=== PATIENT | male | born 1970 | race Caucasian/White ===

== ENCOUNTER 2018-12-20 18:11 | Emergency (ER) | payer MEDICAID, OTHER ==
[~2018-12-20] VITALS: Ht 177.8 cm; Wt 81.6 kg
[2018-12-20 18:24] VITALS: BP 124/63
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
[2018-12-20] MEDS ORDERED: NACL 0.9% 1,000 ML IV ONE (19:55)
--- NOTE | 2018-12-20 22:00 | NUR ---
Patient discharged with v/s stable. Written and verbal after care instructions given and explained. Patient alert, oriented and verbalized understanding of instructions. Ambulatory with steady gait. All questions addressed prior to discharge. ID band removed. Patient advised to follow up with PMD. Rx of TYLENOL 325 MG given. Patient educated on indication of medication including possible reaction and side effects. Opportunity to ask questions provided and answered.
[2018-12-20 22:17] VITALS: BP 136/72
== END 2018-12-20 22:00 | disposition home or self-care (01) ==
LOC: MED 18:11
DX: M25.532 Pain in left wrist (principal); F10.129 Alcohol abuse with intoxication, unspecified
CPT/HCPCS: 29125; 73110; 99283; J7030

== ENCOUNTER 2018-12-23 03:30 | Emergency (ER) | payer MEDICAID ==
[~2018-12-23] VITALS: Ht 177.8 cm; Wt 88.5 kg
--- NOTE | 2018-12-23 03:30 | NUR ---
PT BIBA BLS, TAKEN TO BED 10
[2018-12-23 03:39] VITALS: BP 130/83
--- NOTE | 2018-12-23 03:41 | NUR ---
48 Y/O M BIBA WITH C/O ABDOMINAL PAIN. AAOX4. VSS. TENDERNESS TO RLQ. 7/10 PAIN, ACHING SENSATION. PER PT SYMPTOMS STARTED X2 DAYS AGO. GENERALIZED BODY JERKING MOTIONS. DENIES ALCOHOL AND DRUG USAGE. BEDRAILS X2 UP. NOTIFIED. WILL CONINTUE TO MONITOR. PMH: HEP C
[2018-12-23] MEDS ORDERED: LORazepam 2 MG/ML VIAL IVP ONE (03:50)
[2018-12-23] MEDS ORDERED: NACL 0.9% 1,000 ML IV ONE ×2 (03:50→04:50)
[2018-12-23 04:11] LABS: BASOPHILS % (AUTO) 0.6 % (0.0-2.0); EOSINOPHILS # (AUTO) 0.1 K/uL (0-0.4); EOSINOPHILS % (AUTO) 2.4 % (0.0-4.0); HEMATOCRIT 37.5 % (36-52); HEMOGLOBIN 12.7 g/dL (12.0-18.0); LYMPHOCYTES # (AUTO) 0.9 K/uL (2.0-11.5); MEAN CORPUSCULAR HEMOGLOBIN 30 pg (27-31); MEAN CORPUSCULAR HGB CONC 34 g/dL (33-37); MEAN CORPUSCULAR VOLUME 88.4 fL (80-94); MONOCYTES % (AUTO) 15.8 % (1.7-9.3); NEUTROPHILS # (AUTO) 4.1 K/uL (1.8-7.7); NEUTROPHILS % (AUTO) 66.2 % (42.2-75.2); PLATELET COUNT (AUTO) 148 K/uL (140-450); RED BLOOD CELL COUNT(AUTO) 4.23 MIL/uL (4.20-6.10); RED CELL DISTRIBUTION WIDTH 15.7 % (11.6-13.7); WHITE BLOOD COUNT (AUTO) 6.2 K/uL (4.8-10.8)
[2018-12-23 04:22] LABS: ANION GAP 17.6 (8-16); CARBON DIOXIDE 21.8 mmol/L (21-32); CHLORIDE 104 mmol/L (98-107); CREATININE 1.1 mg/dL (0.7-1.3); GFR ARICAN-AMERICAN 91 mL/min (>90); GLUCOSE 91 mg/dL (74-106); POTASSIUM 3.4 mmol/L (3.5-5.1); SODIUM SERUM 140 mmol/L (136-145); UREA NITROGEN, BLOOD 24 mg/dL (7-18)
[2018-12-23 04:25] LABS: BARBITURATE, URINE NEG. ng/ml (NEG <=200); BENZODIAZEPINE, URINE NEG. ng/mL (NEG <=200); CANNABINOID, URINE NEG. ng/mL (NEG <=50); COCAINE, URINE NEG. ng/mL (NEG <=300); OPIATE, URINE POS. ng/mL (NEG <=2000); PHENCYCLIDINE SCREEN,URINE NEG. ng/mL (NEG <=25)
[2018-12-23 04:29] LABS: ASPARTATE AMINOTRANSFERASE 288 U/L (15-37)
[2018-12-23 04:30] LABS: ACETAMINOPHEN < 0.5 ug/ml (10-30); ALBUMIN 3.5 g/dL (3.4-5.0); SALICYLATE < 2.8 mg/dL (2.8-20.0)
--- NOTE | 2018-12-23 04:35 | NUR ---
PT ASLEEP. AROUSABLE TO NAME AND PAIN STIMULUS. VSS.
--- NOTE | 2018-12-23 05:30 | NUR ---
ATTEMPTED TO AMBULATE PT. UNABLE TO STAND WITH STEADY GAIT. VSS. REPOSITIONED IN BED. BEDRAILS X2 UP. WILL CONTINUE TO MONITOR.
--- NOTE | 2018-12-23 06:35 | NUR ---
PT ASLEEP, BUT AROUSABLE TO NAME. CHEST RISE AND FALL NOTED.
--- NOTE | 2018-12-23 07:06 | NUR ---
BEDSIDE REPORT GIVEN TO JEANNINE CAM. TRANSFER OF CARE AT THIS TIME.
--- NOTE | 2018-12-23 07:27 | NUR ---
PT ASLEEP, EVEN AND UNLABORED BREATHING. AROUSAL TO NAME. ON LOW BED POSITION. WILL CONTINUE TO MONITOR.
--- NOTE | 2018-12-23 08:06 | NUR ---
Patient appears to be resting in bed. Vital Signs within normal limits. Respirations even and unlabored.
[2018-12-23 10:28] VITALS: BP 119/76
== END 2018-12-23 10:29 | disposition home or self-care (01) ==
LOC: MED 03:30
DX: F15.10 Other stimulant abuse, uncomplicated (principal); E86.0 Dehydration; M62.838 Other muscle spasm; F17.210 Nicotine dependence, cigarettes, uncomplicated; Z98.890 Other specified postprocedural states
CPT/HCPCS: 36415; 80053; 80305; 85025; 96374; 99283; G0480; G0482; J2060; J7030

== ENCOUNTER 2018-12-27 16:52 | Emergency (ER) | payer MEDICAID ==
[~2018-12-27] VITALS: Ht 177.8 cm; Wt 83.9 kg
[2018-12-27 16:55] VITALS: BP 151/106
--- NOTE | 2018-12-27 17:20 | NUR ---
PA AT BEDSIDE FOR EVALUATION
--- NOTE | 2018-12-27 17:39 | NUR ---
PT EVALUATED BY PROVIDER
[2018-12-27] MEDS ORDERED: KETOROLAC 60 MG/2 ML VIAL IM ONE (17:40)
--- NOTE | 2018-12-27 17:40 | NUR ---
PT A&OX4, BREATHING EVEN AND UNLABORED C/O L SHOULDER PAIN, L LEG PAIN/SWELLING. WARMTH AND REDNESS NOTED TO LLE. PT DENIES SOB/CP. PT DENIES RECENT TRAUMA/INJURY. PROVIDER AT BEDSIDE FOR EVALUATION.
--- NOTE | 2018-12-27 17:47 | NUR ---
RADIOLOGY AT BEDSIDE
[2018-12-27] MEDS ORDERED: TRIAMCINOLONE 40 MG/ML 5ML VIAL IA ONE (18:40)
[2018-12-27] MEDS ORDERED: LIDOCAINE 2% 1000 MG/50 ML VIAL INJ ONE (18:40)
--- NOTE | 2018-12-27 18:52 | NUR ---
CALLED PHARMACY, THEY WILL SEND KENALOG.
--- NOTE | 2018-12-27 19:12 | NUR ---
MEDICATIONS HANDED TO PROVIDER. REPORT TO JEANNINE BECERRA AND JEANNINE BAUER
--- NOTE | 2018-12-27 19:16 | NUR ---
RECEIVED REPORT FROM JEANNINE KIM.
[2018-12-27] MEDS ORDERED: CLINDAMYCIN 600 MG/4 ML VIAL IM ONE (20:30)
[2018-12-27 21:05] VITALS: BP 138/84
--- NOTE | 2018-12-27 21:05 | NUR ---
Patient discharged with v/s stable. Written and verbal after care instructions given and explained. Patient alert, oriented and verbalized understanding of instructions. Ambulatory with steady gait. All questions addressed prior to discharge. ID band removed. Patient advised to follow up with PMD. Rx of MOTRIN AND NORCO given. Patient educated on indication of medication including possible reaction and side effects. Opportunity to ask questions provided and answered.
== END 2018-12-27 21:05 | disposition home or self-care (01) ==
LOC: MED 16:52
DX: M75.32 Calcific tendinitis of left shoulder (principal); L03.116 Cellulitis of left lower limb
CPT/HCPCS: 20552; 73030; 81002; 93971; 96372; 99284; J1885; J2001; J3301; J3490; Q0092

== ENCOUNTER 2019-04-15 00:25 | Emergency (ER) | payer MEDICAID ==
[~2019-04-15] VITALS: Ht 177.8 cm; Wt 77.1 kg
[2019-04-15 00:25] VITALS: BP 161/90
--- NOTE | 2019-04-15 00:25 | NUR ---
PATIENT BIB W/C TO ER BED 8.
--- NOTE | 2019-04-15 00:45 | NUR ---
PT AMBULATED TO RESTROOM, OBSERVED A LIMP TO L LEG DURING AMBULATION.
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
[2019-04-15] MEDS ORDERED: LIDOCAINE/EPI 2% 1:100000 20 ML VIAL INJ ONE ×3 (01:40→01:45)
[2019-04-15] MEDS ORDERED: HYDROcodone/APAP 5/325 MG 1 TAB TAB PO ONE (01:40)
[2019-04-15] MEDS ORDERED: KETOROLAC 60 MG/2 ML VIAL IM ONE (01:40)
--- NOTE | 2019-04-15 02:20 | NUR ---
AT BEDSIDE DOING PROCEDURE
--- NOTE | 2019-04-15 02:53 | NUR ---
Patient discharged with v/s stable. Written and verbal after care instructions given and explained. Patient alert, oriented and verbalized understanding of instructions. Ambulatory with steady gait. All questions addressed prior to discharge. ID band removed. Patient advised to follow up with PMD. Rx of Naprosyn and Ashley given. Patient educated on indication of medication including possible reaction and side effects. Opportunity to ask questions provided and answered.
[2019-04-15 02:55] VITALS: BP 159/95
== END 2019-04-15 02:53 | disposition home or self-care (01) ==
LOC: MED 00:25
DX: M17.12 Unilateral primary osteoarthritis, left knee (principal); M25.462 Effusion, left knee; Z98.890 Other specified postprocedural states
CPT/HCPCS: 20610; 73562; 96372; 99283; J1885; J2001; Q0092

== ENCOUNTER 2020-08-01 10:19 | Emergency (ER) | payer MEDICAID ==
[~2020-08-01] VITALS: Ht 177.8 cm; Wt 86.2 kg
[2020-08-01 10:20] VITALS: BP 162/98
[2020-08-01] MEDS ORDERED: HYDROXYZINE HYDROCHLORIDE 25 MG TAB PO STA (10:24)
[2020-08-01 11:06] VITALS: BP 160/100
== END 2020-08-01 11:06 ==
LOC: MED 10:19
DX: I10 Essential (primary) hypertension (principal); F41.9 Anxiety disorder, unspecified; Z02.89 Encounter for other administrative examinations
CPT/HCPCS: 99283

== ENCOUNTER 2021-05-03 10:21 | Emergency (ER) | payer MEDICAID ==
[~2021-05-03] VITALS: Ht 175.3 cm; Wt 86.6 kg
[2021-05-03 10:33] VITALS: BP 114/85
--- NOTE | 2021-05-03 10:39 | NUR ---
pt ambulated to bed 06.
[2021-05-03] MEDS ORDERED: KETOROLAC 30 MG/ML VIAL IM ONE (11:40)
--- NOTE | 2021-05-03 11:54 | NUR ---
51 YEAR OLD MALE COMPLAINS OF RIGHT SHOULDER PAIN AND LOWER BACK PAIN FOR THE PAST YEAR. PT STATES SYMPTOMS BECAME MORE SEVERE STARTING YESTERDAY. PT UNABLE TO LIFT RIGHT ARM, LIMITED ROM, +2 RADIAL PULSE, CAP REFILL <3 SEC. PT AOX4, BREATHING EVEN AND UNLABORED, SKIN WARM AND DRY. BED IN LOWEST POSITION, LOCKED, BED RAIL UPX1. PMH - SCOLIOSIS, ARTHRITIS ALLERGIES - NKA
[2021-05-03 13:09] VITALS: BP 114/85
--- NOTE | 2021-05-03 13:09 | NUR ---
Patient discharged with v/s stable. Written and verbal after care instructions given and explained. Patient verbalized understanding. Ambulatory with steady gait. ID Band Removed. All questions addressed prior to discharge. Advised to follow up with PMD.
== END 2021-05-03 13:09 | disposition home or self-care (01) ==
LOC: MED 10:21
DX: M25.511 Pain in right shoulder (principal); I10 Essential (primary) hypertension
CPT/HCPCS: 73030; 96372; 99283; J1885

== ENCOUNTER 2024-01-26 13:41 | Emergency (ER) | payer SELFPAY ==
[~2024-01-26] VITALS: Ht 177.8 cm; Wt 81.6 kg
[2024-01-26 13:49] VITALS: BP 108/78; PULSE 98; RESP 20; TEMP 97; O2SAT 98
[2024-01-26] MEDS: IBUPROFEN 600 MG TAB PO ONE (15:09)
[2024-01-26] MEDS ORDERED: IBUP-2213 PO (16:35)
[2024-01-26 16:49] VITALS: BP 122/67; PULSE 98; RESP 16; TEMP 97; O2SAT 98
== END 2024-01-26 16:48 | disposition home or self-care (01) ==
LOC: MED 13:41
DX: S00.83XA Contusion of other part of head, initial encounter (principal); I10 Essential (primary) hypertension; F41.9 Anxiety disorder, unspecified; F32.9 Major depressive disorder, single episode, unspecified; E05.90 Thyrotoxicosis, unspecified without thyrotoxic crisis or storm; M06.9 Rheumatoid arthritis, unspecified; Z79.899 Other long term (current) drug therapy; X58.XXXA Exposure to other specified factors, initial encounter; Y92.89 Other specified places as the place of occurrence of the external cause; Y93.89 Activity, other specified; Y99.8 Other external cause status
CPT/HCPCS: 70150; 99283

== ENCOUNTER 2024-05-08 21:03 | Emergency (ER) | payer MEDICAID ==
[~2024-05-08] VITALS: Ht 177.8 cm; Wt 73.0 kg
[~2024-05-08 21:03] MED LIST: IBUP-2213 PO
[2024-05-08 21:09] VITALS: BP 132/88; PULSE 86; RESP 22; TEMP 97.8; O2SAT 98
[2024-05-08] MEDS ORDERED: LIDOCAINE MPF 1% 5 ML ONE (22:51)
[2024-05-08] MEDS ORDERED: cefTRIAXone 1,000 MG VIAL ONE (22:51)
[2024-05-08] MEDS: cefTRIAXone 1,000 MG in LIDOCAINE MPF 1% 2.1 ML IM ONE (22:58)
[2024-05-08] MEDS ORDERED: SULF-59 PO (23:10)
== END 2024-05-08 23:15 | disposition home or self-care (01) ==
LOC: MED 21:03
DX: L03.114 Cellulitis of left upper limb (principal); I10 Essential (primary) hypertension; Z79.1 Long term (current) use of non-steroidal anti-inflammatories (NSAID); Z79.899 Other long term (current) drug therapy
CPT/HCPCS: 96372; 99283; J0696; J2001

== ENCOUNTER 2024-07-02 21:05 | Emergency (ER) | payer MEDICAID ==
[~2024-07-02] VITALS: Ht 172.7 cm; Wt 68.0 kg
[~2024-07-02 21:05] MED LIST changes: +SULF-59 PO
[2024-07-02 21:17] VITALS: BP 163/94; PULSE 69; RESP 18; TEMP 98; O2SAT 99
[2024-07-02] MEDS: LIDOCAINE 2% 1000 MG/50 ML VIAL INJ ONE (21:44)
[2024-07-02] MEDS ORDERED: IBUP-2213 PO (22:42)
[2024-07-02] MEDS ORDERED: TRAM50TA3 PO (22:42)
[2024-07-02] MEDS ORDERED: BACTO TP (22:42)
[2024-07-02 22:50] VITALS: BP 154/92; PULSE 70; RESP 18; TEMP 98; O2SAT 98
== END 2024-07-02 22:50 | disposition home or self-care (01) ==
LOC: MED 21:05
DX: S02.2XXA Fracture of nasal bones, initial encounter for closed fracture (principal); S01.111A Laceration without foreign body of right eyelid and periocular area, initial encounter; S63.501A Unspecified sprain of right wrist, initial encounter; I10 Essential (primary) hypertension; Z79.899 Other long term (current) drug therapy; Y08.89XA Assault by other specified means, initial encounter; Y93.89 Activity, other specified; Y92.89 Other specified places as the place of occurrence of the external cause; Y99.8 Other external cause status
CPT/HCPCS: 12013; 29125; 70450; 70486; 73110; 73130; 90471; 90715; 99285; J2001; Q0092

== ENCOUNTER 2024-07-12 23:10 | Emergency (ER) | payer MEDICAID ==
[~2024-07-12] VITALS: Ht 177.8 cm; Wt 79.4 kg
[~2024-07-12 23:10] MED LIST changes: +BACTO TP; +TRAM50TA3 PO
[2024-07-12 23:33] VITALS: BP 144/93; PULSE 74; RESP 16; TEMP 98.1; O2SAT 99
== END 2024-07-13 00:56 | disposition left against medical advice (07) ==
LOC: MED 23:10
DX: M79.641 Pain in right hand (principal); Z53.21 Procedure and treatment not carried out due to patient leaving prior to being seen by health care provider